=== PATIENT | female | born 1960 | race Caucasian/White ===

== ENCOUNTER → 2022-11-20 | Outpatient (CLI) | payer OTHER | END | disposition home or self-care (01) | LOC: SHCH 14:01 | PROVIDERS: ATTEND Internal Medicine | DX: R00.2 Palpitations (principal); I10 Essential (primary) hypertension; E78.5 Hyperlipidemia, unspecified; E11.9 Type 2 diabetes mellitus without complications | CPT/HCPCS: 93306 ==

== ENCOUNTER → 2023-09-03 | Outpatient (CLI) | payer OTHER ==
[2023-09-03 15:35] LABS: ALBUMIN 3.6 g/dL (3.5-5.0); BILIRUBIN,DIRECT 0.1 mg/dL (0.0-0.3); BILIRUBIN,TOTAL 0.6 mg/dL (0.2-1.0); TOTAL PROTEIN, SERUM 7.3 g/dL (6.0-8.3)
== END | disposition home or self-care (01) ==
LOC: LAB 13:36
PROVIDERS: ATTEND Internal Medicine
DX: E11.65 Type 2 diabetes mellitus with hyperglycemia (principal); I10 Essential (primary) hypertension; I47.10 Supraventricular tachycardia, unspecified
CPT/HCPCS: 36415; 80061; 80076

== ENCOUNTER → 2023-12-15 | Outpatient (CLI) | payer OTHER ==
[2023-12-15 16:27] LABS: CREATININE 1.1 mg/dL (0.5-1.0)
== END | disposition home or self-care (01) ==
LOC: LAB 13:54
PROVIDERS: ATTEND Internal Medicine
DX: R07.9 Chest pain, unspecified (principal)
CPT/HCPCS: 36415; 80048

== ENCOUNTER 2025-08-07 12:44 | Observation (INO) | payer OTHER ==
[~2025-08-07] VITALS: Ht 170.2 cm; Wt 128.3 kg
--- NOTE | 2025-08-07 12:53 | ERN ---
ED Note History of Present Illness Stated Complaint: SOB Chief Complaint: Shortness of Breath Time Seen by MD: 12:47 Dictation: PATIENT IS A 65-YEAR-OLD FEMALE COMING IN TODAY WITH INTERMITTENT CHEST PAIN SUBSTERNAL WITH THE OCCASIONAL PRESSURE AND SHORTNESS A BREATH. SHE STATES IT HAS BEEN GOING ON FOR TWO WEEKS. SHE STATES SHE WAS RECENTLY SEEN BY AND HAS FOLLOW UP WITH THE HIM FOR AN APPOINTMENT. SHE STATES SHE IS NOT ON ANY ASPIRIN AND NITROGLYCERIN CURRENTLY STATES SHE HAS NO CHEST PAIN NOW. NO EPIGASTRIC PAIN NO NAUSEA NO VOMITING Allergies: Coded Allergies: Penicillins (Unverified Allergy, Unknown, 08/07/25) bupropion (Unverified Allergy, Unknown, 08/07/25) codeine (Unverified Allergy, Unknown, 08/07/25) erythromycin base (Unverified Allergy, Unknown, 08/07/25) levofloxacin (Unverified Allergy, Unknown, 08/07/25) levothyroxine (Unverified Allergy, Unknown, 08/07/25) propoxyphene (Unverified Allergy, Unknown, 08/07/25) tetracycline (Unverified Allergy, Unknown, 08/07/25) budesonide (Unverified Adverse Reaction, Unknown, 08/07/25) NAUSEA/ VOMITING dexamethasone (Unverified Adverse Reaction, Unknown, 08/07/25) ANXIETY tirzepatide (Unverified Adverse Reaction, Unknown, 08/07/25) NAUSEA/VOMITING Past Medical History Past Medical History: Depression, High Cholesterol, Hypertension, Other Surgical History: Hysterectomy, Other Surgical History Other: LEFT ROTATOR CUFF RN Note Reviewed/Agreed w/PFSH: Yes Review of System Dictation CONSTITUTIONAL: NEGATIVE EXCEPT FOR HPI HEAD/FACE: NEGATIVE EXCEPT FOR HPI EENT: NEGATIVE EXCEPT FOR HPI RESPIRATORY: NEGATIVE EXCEPT FOR HPI CHEST PAIN/PALPITATIONS INTERMITTENT GASTROINTESTINAL/ABDOMINAL: NEGATIVE EXCEPT FOR HPI GENITOURINARY: NEGATIVE EXCEPT FOR HPI MUSCULOSKELETAL: NEGATIVE EXCEPT FOR HPI INTEGUMENTARY: NEGATIVE EXCEPT FOR HPI NEUROLOGICAL/PSYCH: NEGATIVE EXCEPT FOR HPI HEMATOLOGIC/LYMPHATIC: NEGATIVE EXCEPT FOR HPI ALL SYSTEMS NEGATIVE, EXCEPT NOTED ABOVE. 13 POINT REVIEW OF SYSTEMS ASSESSED AND ALL NEGATIVE EXCEPT FOR ABOVE. Initial Vital Sign VS Vital Signs Date Time Temp Pulse Resp B/P (MAP) Pulse Ox O2 Delivery O2 Flow Rate FiO2 08/07/25 12:45 97.5 71 18 199/83 98 08/07/25 18:02 Room Air* 0 21 Physical Exam Dictation VITAL SIGNS REVIEWED GENERAL APPEARANCE: ALERT, ORIENTED X 3, NO ACUTE DISTRESS, WELL DEVELOPED, NOURISHED. OBESITY HEAD AND FACE: NON-TRAUMATIC. EYES: PERRL, PINK CONJUNCTIVAS, EYELID NO TRAUMA, ANTERIOR CHAMBER WITH ARCUS SENILIS. EARS: PINNAS INTACT AND NO SIGNS OF TRAUMA OR ERYTHEMA EAR CANALS CLEAR AND NO DISCHARGE TM NO ERYTHEMA NOSE: NO DISCHARGE, NO BLEEDING. OROPHARYNX: MOUTH NORMAL, TONGUE PINK, PHARYNX CLEAR,NO ERYTHEMA, TONSILS NO EXUDATES, NO ABSCESSES NOTED, MUCOUS MEMBRANE MOIST NECK: SUPPLE, NON-TENDER, NO THYROMEGALY, NO MASSES, NO JVD, NO BRUITS BREAST:DEFERRED CHEST:NO TENDERNESS, NO CREPITUS, NO PARADOXICAL MOVEMENT, NO RETRACTIONS LUNGS:CLEAR, WELL-VENTILATED, SYMMETRIC, NO RALES, NO WHEEZING, NO RHONCHI, NO STRIDOR, GOOD BREATH SOUNDS BILATERALLY HEART: REGULAR RATE, REGULAR RHYTHM, NO MURMUR, NO GALLOPS VASCULAR: NO PERIPHERAL EDEMA, ABDOMEN: SOFT, POSITIVE BOWEL SOUNDS, NONDISTENDED, NO GUARDING, NONTENDER, NO REBOUND, NO MASSES NO HEPATOMEGALY, NO SPLENOMEGALY, NO WU'S SIGN, NO HERNIAS. RECTAL: DEFERRED GENITAL: DEFERRED NEUROLOGICAL: NORMAL SPEECH, MOTOR FUNCTION INTACT, SENSORY FUNCTION INTACT MUSCULOSKELETAL: NECK NONTENDER, FULL RANGE OF MOTION, BACK NONTENDER, FULL RANGE OF MOTION, EXTREMITIES: NONTENDER, FULL RANGE OF MOTION SKIN: COLOR PINK, DRY, NO TURGOR, NO RASH, NO LACERATIONS, NO ABRASIONS, NO CONTUSIONS. LYMPHATIC: DEFERRED Results (Laboratory/Radiology) Laboratory/Radiology Laboratory Tests Test 08/07/25 13:09 08/07/25 16:55 08/07/25 17:30 08/07/25 17:55 White Blood Count 6.1 K/uL (4.8-10.8) Red Blood Count 4.91 MIL/uL (4.00-5.50) Hemoglobin 12.7 g/dL (12.0-16.0) Hematocrit 40.8 % (36-48) Mean Corpuscular Volume 83.1 fL (79-99) Mean Corpuscular Hemoglobin 25.9 pg (27.0-33.0) L Mean Corpuscular Hemoglobin Concent 31.1 g/dL (32.0-36.0) L Red Cell Distribution Width 14.1 % (11.0-15.5) Platelet Count 342 K/uL (130-400) Mean Platelet Volume 9.9 fL (7.5-10.5) Immature Granulocyte % (Auto) 0.3 % (0-1) Neutrophils (%) (Auto) 71.3 % (40.0-77.0) Lymphocytes (%) (Auto) 20.4 % (21.0-51.0) L Monocytes (%) (Auto) 5.6 % (3.0-13.0) Eosinophils (%) (Auto) 1.3 % (0.0-8.0) Basophils (%) (Auto) 1.1 % (0.0-5.0) Neutrophils # (Auto) 4.3 K/uL (1.8-7.7) Lymphocytes # (Auto) 1.2 K/uL (1.0-4.8) Monocytes # (Auto) 0.3 K/uL (0.1-1.0) Eosinophils # (Auto) 0.08 K/uL (0.00-0.70) Basophils # (Auto) 0.07 K/uL (0.00-0.20) Absolute Immature Granulocyte (auto 0.02 K/uL (0-1) Nucleated Red Blood Cells 0.0 % (0.0-0.19) Sodium Level 136 mmol/L (136-145) Potassium Level 4.2 mmol/L (3.5-5.1) Chloride Level 99 mmol/L (101-111) L Carbon Dioxide Level 31 mmol/L (21-32) Blood Urea Nitrogen 15 mg/dL (7-18) Creatinine 1.1 mg/dL (0.5-1.0) H Glomerular Filtration Rate Calc 56 mL/min (>90) Random Glucose 137 mg/dL (70-105) H Total Calcium 9.3 mg/dL (8.5-10.1) Magnesium Level 2.10 mg/dL (1.80-2.40) Troponin I High Sensitivity < 4 ng/L (4-50) L < 4 ng/L (4-50) L B-Type Natriuretic Peptide 26 pg/mL (0-100) Urine Color YELLOW (YELLOW) Urine Appearance HAZY (CLEAR) Urine pH 5.5 (5.0-8.0) Urine Specific [place] 1.024 (1.001-1.031) Urine Protein NEGATIVE mg/dL (NEGATIVE) Urine Glucose (UA) NEGATIVE mg/dL (NEGATIVE) Urine Ketones NEGATIVE mg/dL (NEGATIVE) Urine Occult Blood NEGATIVE (NEGATIVE) Urine Nitrate NEGATIVE (NEGATIVE) Urine Bilirubin NEGATIVE mg/dL (NEGATIVE) Urine Urobilinogen 0.2 mg/dL (0.2-1.0) Urine Leukocyte Esterase 75 Sean/uL (NEGATIVE) H Urine RBC 0-1 /HPF (0-1) Urine WBC 2-5 /HPF (0-1) H Urine Squamous Epithelial Cells MANY /HPF (0-2) Urine Bacteria FEW /HPF (None Seen) SARS-CoV-2 Antigen (Rapid) PRESUMPTIVE NEGATIVE R Chest, 1 View. CLINICAL HISTORY: CHEST PAIN COMPARISON: None provided. FINDINGS: LUNGS: There is no mass, infiltrate, or acute pulmonary abnormality. PLEURAL SPACES: No evidence of pleural effusion or pneumothorax. MEDIASTINUM: The cardiomediastinal silhouette is within normal limits. BONES: No acute osseous abnormality. IMPRESSION: No acute cardiopulmonary pathology is evident. /[place] Labs Reviewed?: Yes EKG Comment: 1234/EKG SINUS RHYTHM WITH A HEART RATE 88/LEFT ATRIAL ENLARGEMENT/MULTIFOCAL PVCS 1745/2ND EKG SINUS RHYTHM/HEART RATE 79/AXIS NORMAL T-WAVE FLATTENING V4 V5 HIGH SENSITIVITY TROPONIN IS FOUR, HEART SCORE IS THREE ED Course ED Course Orders Procedure Category Date Status Time Covid19 (Sars Antigen LAB 08/07/25 Complete Rapid) 12:49 B-Type Natriuretic LAB 08/07/25 Complete Peptide 12:49 Cbc With Differential LAB 08/07/25 Complete 12:49 Chest 1vw RAD 08/07/25 Resulted 12:49 12 Lead Ekg Tracing- EKG 08/07/25 Complete Technical 12:49 Magnesium LAB 08/07/25 Complete 12:49 Troponin I High LAB 08/07/25 Complete Sensitivity 12:49 Urinalysis Profile LAB 08/07/25 Complete 12:49 Basic Metabolic Panel LAB 08/07/25 Complete 12:49 Aspirin 325mg Tab PHA 08/07/25 Complete (Aspirin 325mg Tab) 13:00 Oxygen By Nc/Pulse Ox CPOE 08/07/25 Transmitted 12:49 Culture Urine CARLOS 08/07/25 In Process 17:11 12 Lead Ekg Tracing- EKG 08/07/25 Logged Technical 17:24 Troponin I High LAB 08/07/25 Complete Sensitivity 17:24 Aspirin 325mg Tab PHA 08/07/25 Complete (Aspirin 325mg Tab) 17:30 Cardiology Consult CONPHYSVC 08/07/25 Transmitted 18:53 Echo 2-D Complete ECHO 08/07/25 Logged 18:53 Vital Signs Every 4 CPOE 08/07/25 Transmitted Hours 18:53 Daily Weights CPOE 08/07/25 Transmitted 18:53 I&O Q Shift CPOE 08/07/25 Transmitted 18:53 Activity: Br W/Brp CPOE 08/07/25 Transmitted With Assist 18:53 Heart Healthy Diet DIET 08/08/25 Transmitted Breakfast Cbc With Differential LAB 08/08/25 Verified 04:00 Basic Metabolic Panel LAB 08/08/25 Verified 04:00 Magnesium LAB 08/08/25 Verified 04:00 Phosphorus LAB 08/08/25 Verified 04:00 Iron Panel With %Sat LAB 08/08/25 Verified 04:00 Prothrombin Time With LAB 08/08/25 Verified INR 04:00 Ionized Calcium LAB 08/08/25 Verified 04:00 Pantoprazole 40mg Tab PHA 08/08/25 In Process (Protonix 40mg Tab 09:00 Enoxaparin Sodium 40 PHA 08/08/25 Logged Mg/0.4 Ml (Lovenox) 09:00 Aspirin 81mg Chew Tab PHA 08/08/25 In Process (Aspirin 81mg Chew 09:00 Acetaminophen 325 Tab PHA 08/07/25 In Process (Tylenol 325mg Tab 19:00 Lactulose 20 Gm/30 Ml PHA 08/07/25 Logged Udcup (Constulose 19:00 Ondansetron 4mg Inj PHA 08/07/25 Logged (Zofran 4mg Inj) 19:00 Clonidine Hcl 0.1 Mg PHA 08/07/25 Logged Tablet (Catapres 0. 19:00 Labetalol 20mg Syg PHA 08/07/25 Logged (Trandate 20mg Syg) 19:00 Apply Scds CPOE 08/07/25 Transmitted 18:53 Turn Patient Q2hrs CPOE 08/07/25 Transmitted 18:53 Elevate Hob At 30 CPOE 08/07/25 Transmitted Degrees 18:53 Admit Orders ADM 08/07/25 Transmitted 18:53 Condition: CPOE 08/07/25 Transmitted 18:53 Telemetry Monitoring CPOE 08/07/25 Transmitted 18:53 Initiate SHEYLA 08/07/25 In Process Hyperglycemia Protoco 18:53 Insulin Regular, PHA 08/07/25 Logged Human 3ml (Humulin R 21:00 Troponin I High LAB 08/08/25 Verified Sensitivity 00:00 Lipid Panel LAB 08/08/25 Verified 04:00 Hemoglobin A1c LAB 08/08/25 Verified 04:00 Thyroid Stimulating LAB 08/08/25 Verified Hormone 04:00 Edm Admit Bridge Order ADM 08/07/25 Verified 19:02 Current Medications Medications (Trade) Dose Ordered Sig/Regan Route PRN Reason Start Time Stop Time Status Last Admin Dose Admin Acetaminophen (TYLenol 325MG TAB) 650 mg Q6H PRN PO FEVER/MILD PAIN LEVEL 1-3 08/07/25 19:00 09/06/25 18:59 Aspirin (Aspirin 325mg Tab) 325 mg ONCE ONCE PO 08/07/25 13:00 08/07/25 13:01 DC 08/07/25 17:38 Aspirin (Aspirin 325mg Tab) 325 mg ONCE ONCE PO 08/07/25 17:30 08/07/25 17:31 DC Aspirin (Aspirin 81mg Chew Tab) 81 mg DAILY PO 08/08/25 09:00 09/07/25 08:59 Clonidine HCl (CATApres 0.1 mg TAB) 0.1 mg Q6H PRN PO IF SBP GREATER THAN 160 08/07/25 19:00 09/06/25 18:59 Enoxaparin Sodium (Lovenox) 40 mg DAILY SQ 08/08/25 09:00 09/07/25 08:59 UNV Insulin Human Regular (humuLIN R 100 UNIT/ML 3ML) INSULIN SLIDING SCAL... ACHS SQ 08/07/25 21:00 09/06/25 20:59 UNV Labetalol HCl (TRANdate 20MG SYG) 10 mg Q2H PRN IV SBP GREATER THAN 180 08/07/25 19:00 09/06/25 18:59 Lactulose (Constulose 20gm/ 30ml Udcup) 20 gm Q6H PRN PO CONSTIPATION 08/07/25 19:00 09/06/25 18:59 Ondansetron HCl (zoFRAN 4MG INJ) 4 mg Q6H PRN IVP NAUSEA/VOMITING 08/07/25 19:00 09/06/25 18:59 Pantoprazole Sodium (PROTonix 40MG TAB) 40 mg DAILY PO 08/08/25 09:00 09/07/25 08:59 Vital Signs Date Time Temp Pulse Resp B/P (MAP) Pulse Ox O2 Delivery O2 Flow Rate FiO2 08/07/25 18:02 96 17 186/93 98 Room Air* 0 21 08/07/25 12:45 97.5 71 18 199/83 98 1725/PATIENT NOT HAVE ANY CHEST PAIN AT THIS TIME SHE DESCRIBES IT PALPITATIONS. EKG WAS SINUS RHYTHM WITH PVCS. HIGH SENSITIVITY TROPONIN LESS THAN FOUR. WE WILL FOLLOW TO REPEAT CHEST PAIN [id number] 1840/PATIENT IS HAVING NO PRESSURE AT THIS TIME HOWEVER SHE STATES SHE IS STILL FEELING PALPITATIONS AND DOES NOT FEEL SAFE GOING HOME.1857/ 1857/spoke with [facility] hospitalist reviewed EKG labs chest x-ray. He is aware the patient has been seen by Dr. Pena in the past. HEART Score Response (Comments) Value EKG: Repolarization changes 1 Age: 45-65yrs (+1) 1 Risk Factors: 1-2 risk factors (+1) 1 Initial Troponin: Normal limit (0) 0 Total 3 Medical Decision Making MDM MDM: DIFFERENTIAL DIAGNOSIS: ACS/AMI/ELECTROLYTE IMBALANCE/DEHYDRATION/ANXIETY/PNEUMONIA/BRONCHITIS/FLUID OVERLOAD RATIONALE: TESTS CONSIDERED AND ORDERED SECONDARY TO SHARED DECISION MAKING INCLUDE: LABS, ECG AND RADIOLOGY PREVIOUS OUTSIDE RECORDS REVIEWED: OLD ER VISITS. RISK OF COMPLICATION AND/OR MORBIDITY OR MORTALITY OF PATIENT MANAGEMENT: NONE MEDICATIONS-PER MEDICATION RECONCILIATION NEED FOR HOSPITALIZATION: PATIENT DOES MEET CRITERIA FOR HOSPITALIZATION. CARDIAC CONSULTATION AND MONITORING. NEED FOR EMERGENCY MAJOR/MINOR SURGERY: NO THERE ARE NO SOCIAL CONCERNS WITH THIS PATIENT. PRESCRIPTION DRUG MANAGEMENT PRESCRIPTIONS WILL INCLUDE SYMPTOMATIC CARE PATIENT'S PRIOR EXTERNAL MEDICAL RECORDS FROM OTHER ER VISITS WERE REVIEWED BY ME INDICATED. PRIOR TESTING AND RESULTS FROM PREVIOUS VISITS WERE REVIEWED. PRIOR TESTS WERE TAKEN INTO ACCOUNT WITH MEDICAL DECISION MAKING AND RESOURCE UTILIZATION, INDEPENDENT HISTORIAN/HISTORIANS WERE USED TO OBTAIN COMPLETE MEDI VI HISTORY. I INDEPENDENTLY INTERPRETED THE TEST THAT WERE PERFORMED, RESULTS WERE REVIEWED BY ME AND CONSIDERED FINDINGS ON RADIOLOGY IF ORDERED. MEDICAL MANAGEMENT AND EXAMINATION INTERPRETATION DISCUSSIONS WERE HAD BY ME WITH OTHER QUALIFIED HEALTHCARE PROFESSIONALS INDICATED FOR THE PATIENT'S CARE. DX & DISP Disposition: Inpatient Decision to Admit Time: 18:43 Departure Impression: Primary Impression: Atypical chest pain Additional Impressions: Palpitations, Stage 3a chronic kidney disease, Hyperglycemia Condition: Stable Referrals: TAY MONTE MD (PCP) Time of Disposition: 18:43 I have reviewed the case, and I agree with, Diagnosis and Plan LUCINA MIMS MANAGER TRAINING AND DEVELOPMENT Aug 07, 2025 12:53
[2025-08-07 13:16] LABS: IMMATURE GRANULOCYTE ABSOLUTE 0.02 K/uL (0-1); NUCLEATED RED BLOOD CELLS 0.0 % (0.0-0.19); PLATELET COUNT (AUTO) 342 K/uL (130-400); RED BLOOD CELL COUNT(AUTO) 4.91 MIL/uL (4.00-5.50); RED CELL DISTRIBUTION WIDTH 14.1 % (11.0-15.5); WHITE BLOOD COUNT (AUTO) 6.1 K/uL (4.8-10.8)
[2025-08-07 13:25] LABS: CREATININE 1.1 mg/dL (0.5-1.0); GLOMERULAR FILTR. RATE CALC 56.0 mL/min (>90); GLUCOSE,RANDOM 137.0 mg/dL (70-105); SODIUM SERUM 136.0 mmol/L (136-145); UREA NITROGEN, BLOOD 15.0 mg/dL (7-18)
--- NOTE | 2025-08-07 13:34 | HMCIMG ---
EXAM: CR Chest, 1 View. CLINICAL HISTORY: CHEST PAIN COMPARISON: None provided. FINDINGS: LUNGS: There is no mass, infiltrate, or acute pulmonary abnormality. PLEURAL SPACES: No evidence of pleural effusion or pneumothorax. MEDIASTINUM: The cardiomediastinal silhouette is within normal limits. BONES: No acute osseous abnormality. IMPRESSION: No acute cardiopulmonary pathology is evident. /[place]
--- NOTE | 2025-08-07 14:35 | EKG ---
[facility] Test Date: 2025-08-07 Test Time: 12:34:08 Pat Name: EMERSON WILLAMS Department: [facility] Room: ED Gender: F Melter Clerk: [id number] : 1960 Requested By: LUCINA MIMS Order Number: [id number] Reading MD: Priyanka Pena Measurements Intervals [place] Rate: 88 P: 70 OH: 152 QRS: 24 QRSD: 87 T: 7 QT: 359 QTc: 439 Interpretive Statements Sinus rhythm Multiple ventricular premature complexes Probable left atrial enlargement No previous ECG available for comparison Electronically Signed On 08-07-2025 19:40:34 CYBER OPERATOR by Priyanka Pena Please click the below link to view image of tracing.
[2025-08-07 17:08] LABS: GLUCOSE, URINE (UA) NEGATIVE (NEGATIVE); LEUKOCYTE ESTERASE ,URINE 75 Leu/uL (NEGATIVE); NITRATE,URINE NEGATIVE (NEGATIVE); OCCULT BLOOD,URINE NEGATIVE (NEGATIVE)
[2025-08-07 17:09] LABS: ADD UA MICROSCOPIC YES; APPEARANCE,URINE HAZY (CLEAR)
[2025-08-07 17:14] LABS: SQUAMOUS EPITHELIAL CELL,UR MANY /HPF (0-2)
[2025-08-07] MEDS: ASPIRIN 325MG TAB PO ONE ×2 (17:38)
[2025-08-07] MEDS ORDERED: LACTULOSE 20 GM/30 ML UDCUP PO PRN (19:00)
--- NOTE | 2025-08-07 19:02 | HP ---
[facility] HISTORY & PHYSICAL Date Patient Seen: Aug 07, 2025 Time of Visit: 18:59 Supervising Physician: [Dr. Derek Pandya] Primary Care Physician: [Dr. David Ross ] Outpatient Specialists: [Dr. Pena-cardiology ] Inpatient Consults: [Dr. Pena-cardiology ] PROBLEM LIST: Atypical chest pain-POA Palpitations-POA Hypertensive urgency-POA HLD DM Paroxysmal Afib and SVT CKD GERD Anxiety disorder PLAN: -Admit to medsur telemetry -ACS risk stratifications: TSH, lipid panel and HgA1c -Obtain echo in am -Recheck trops -PRN NTG and IV Morphine for chest pain management -Dr. Carpenter was notified by ED practitioner and will need to consult Dr. Pena in am -Maintain hemodynamic stability to keep MAP >65; PRN IV Labetalol for SBP >160 HPI: [Patient is a morbidly obese 65-year-old female with PMH significant for paroxysmal afib adn SVT, HTN, HLD, CKD, GERD and anxiety who has presented tot he ED concerning persistent palpitations and right-sided chest tightness with accompanying dizziness and near-syncope with no known provocation. She reports strong family HX of arrythmias and with a long-standing recurrent palpitations, she was just afraid of further complications. She claims that her symptoms have been occurring more frequently now. She tried contacting Dr. Pena's clinic m ultiple times but she claims she could not get connected so she decided to come to the hospital instead for evaluation. Her chest tightness occurs spontaneously regardless of her activities or position. She denies any migration or radiation. Her main focus of concern was the heart pause claiming that she would feel the skipped beats and then palpitations in an alternating fashion without any triggers. Labworks were unremarkable, EKG was NSR, troponin x 2 were WNL. Physical assessment was unrevealing except for appreciable skipped beats on auscultation. Otherwise, patient is currently stable. Goals of care were discussed with the patient verbalizing understanding and agreement.] PAST MEDICAL HX: see above PAST SURGICAL HX: noncontributory SOCIAL HISTORY: No tobacco, ETOH, or illicit drug use Coded Allergies: Penicillins (Unverified Allergy, Unknown, 08/07/25) bupropion (Unverified Allergy, Unknown, 08/07/25) codeine (Unverified Allergy, Unknown, 08/07/25) erythromycin base (Unverified Allergy, Unknown, 08/07/25) levofloxacin (Unverified Allergy, Unknown, 08/07/25) levothyroxine (Unverified Allergy, Unknown, 08/07/25) propoxyphene (Unverified Allergy, Unknown, 08/07/25) tetracycline (Unverified Allergy, Unknown, 08/07/25) budesonide (Unverified Adverse Reaction, Unknown, 08/07/25) NAUSEA/ VOMITING dexamethasone (Unverified Adverse Reaction, Unknown, 08/07/25) ANXIETY tirzepatide (Unverified Adverse Reaction, Unknown, 08/07/25) NAUSEA/VOMITING REVIEW OF SYSTEMS: 12 point ROS reviewed with patient. Pertinent positives mentioned above. Otherwise negative. PHYSICAL EXAM: GENERAL: alert, awake oriented x 3, morbidly obese HEENT: EOMI, Sclera non icteric, moist mucosa NECK: Supple, no JVD, trachea midline LUNGS: Clear breath sounds bilaterally. No wheezes HEART: Regular rate and rhythm. Normal S1 and S2, without murmurs, appreciable skipped beats noted on auscultation ABD: Abdomen soft, nontender. Bowel sounds present EXT: No clubbing cyanosis or edema NEURO: Alert and oriented to person, follows commands Vital Signs (last 8hr) Date Time Temp Pulse Resp B/P (MAP) Pulse Ox O2 Delivery O2 Flow Rate FiO2 08/07/25 18:02 96 17 186/93 98 Room Air* 0 21 08/07/25 12:45 97.5 71 18 199/83 98 LABS: Hematology Labs: Test 08/07/25 13:09 Range/Units White Blood Count 6.1 4.8-10.8 K/uL Red Blood Count 4.91 4.00-5.50 MIL/uL Hemoglobin 12.7 12.0-16.0 g/dL Hematocrit 40.8 36-48 % Mean Corpuscular Volume 83.1 79-99 fL Mean Corpuscular Hemoglobin 25.9 L 27.0-33.0 pg Mean Corpuscular Hemoglobin Concent 31.1 L 32.0-36.0 g/dL Red Cell Distribution Width 14.1 11.0-15.5 % Platelet Count 342 130-400 K/uL Mean Platelet Volume 9.9 7.5-10.5 fL Immature Granulocyte % (Auto) 0.3 0-1 % Neutrophils (%) (Auto) 71.3 40.0-77.0 % Lymphocytes (%) (Auto) 20.4 L 21.0-51.0 % Monocytes (%) (Auto) 5.6 3.0-13.0 % Eosinophils (%) (Auto) 1.3 0.0-8.0 % Basophils (%) (Auto) 1.1 0.0-5.0 % Neutrophils # (Auto) 4.3 1.8-7.7 K/uL Lymphocytes # (Auto) 1.2 1.0-4.8 K/uL Monocytes # (Auto) 0.3 0.1-1.0 K/uL Eosinophils # (Auto) 0.08 0.00-0.70 K/uL Basophils # (Auto) 0.07 0.00-0.20 K/uL Absolute Immature Granulocyte (auto 0.02 0-1 K/uL Nucleated Red Blood Cells 0.0 0.0-0.19 % Chemistry Labs: Test 08/07/25 17:55 08/07/25 13:09 Range/Units Troponin I High Sensitivity < 4 L 4-50 ng/L Sodium Level 136 136-145 mmol/L Potassium Level 4.2 3.5-5.1 mmol/L Chloride Level 99 L 101-111 mmol/L Carbon Dioxide Level 31 21-32 mmol/L Blood Urea Nitrogen 15 7-18 mg/dL Creatinine 1.1 H 0.5-1.0 mg/dL Glomerular Filtration Rate Calc 56 >90 mL/min Random Glucose 137 H 70-105 mg/dL Total Calcium 9.3 8.5-10.1 mg/dL Magnesium Level 2.10 1.80-2.40 mg/dL B-Type Natriuretic Peptide 26 0-100 pg/mL DIAGNOSTICS / RADIOLOGY RESULTS: [ ] PLAN NEURO: Minimize central acting medications as possible. Maintain fall precautions, adequate lighting during the day PULMONARY: Supplemental 02 as needed. Maintain aspiration precautions at all times CARDIOVASCULAR: Follow hemodynamics. Vital signs per facility protocol GI & NUTRITION: Continue with nutritional support. Continue stool softeners and laxatives as needed. KIDNEYS & ELECTROLYTES: Strict monitoring of intake, output and overall fluid balance. Avoid nephrotoxic medications to the extent possible. Medications to be dosed according to renal function. Monitor electrolytes and replace as needed ENDOCRINE: Maintain blood glucose between 100-180 at all times. Hypoglycemia protocol in place INFECTIOUS DISEASE: Trend temperature, WBC and procalcitonin level Follow cultures, deescalate antibiotics as soon as possible. Panculture if new onset fever ONCOLOGY/HEMATOLOGY/COAGULATION: Monitor for s/s of bleeding Monitor hemoglobin, coagulation studies as needed SKIN: Pressure ulcer prevention per facility protocol Specialty mattress ORTHO/REHAB: Continue PT/OT Prophylaxis: Continue GI and DVT prophylaxis Code Status: Full Resuscitation Disposition: JAYNA QUACH AGACNP Aug 07, 2025 19:02
--- NOTE | 2025-08-07 21:11 | NUR ---
ROSIE OUTREACH WORKER AT BEDSIDE AT THIS TIME
[2025-08-08] MEDS ORDERED: OMEP20TA2 PO (00:47)
[2025-08-08] MEDS ORDERED: DULO20CA18 PO (00:47)
[2025-08-08] MEDS ORDERED: ATOR40TA71 PO (00:47)
[2025-08-08] MEDS ORDERED: LISI40TA15 PO (00:47)
[2025-08-08] MEDS ORDERED: IOHEXOL-350 50ML VIAL IV ONE (02:47)
--- NOTE | 2025-08-08 04:16 | HMCIMG ---
EXAM: CTA examination of the chest CLINICAL HISTORY: Rule out pulmonary embolism. Elevated D-dimer. Shortness of breath. TECHNIQUE: Postcontrast thin collimated axial CTA images of the chest were obtained with sagittal and coronal reformatted images also submitted. CT scan is done according to ALARA (As Low as Reasonably Achievable). COMPARISON: None provided. FINDINGS: Mild subsegmental atelectasis in the bilateral lung bases. 0.6 cm subpleural nodule in the left lingula. Mild biapical pleural scarring. No focal consolidation, effusion, pneumothorax, or mass. No pericardial effusion. The cardiac size is within normal limits. Mild calcific atherosclerotic disease in the thoracic aorta. No thoracic aortic aneurysm. The pulmonary artery is normal in caliber without a filling defect or pulmonary thromboembolism. No mediastinal, axillary, or supraclavicular lymphadenopathy. No focal third abnormality is evident. Mild fatty liver. 2.2 cm cystic structure within the spleen. No acute bony abnormality is evident. Mild scoliosis. Degenerative osseous changes. IMPRESSION: No acute pulmonary thromboembolism is evident. No acute cardiopulmonary process. 0.6 cm subpleural nodule in the left lingula. Recommend a follow-up CT chest at 6 months. /[place]
[2025-08-08 06:09] LABS: IMMATURE GRANULOCYTE ABSOLUTE 0.02 K/uL (0-1); NUCLEATED RED BLOOD CELLS 0.0 % (0.0-0.19); PLATELET COUNT (AUTO) 321 K/uL (130-400); RED BLOOD CELL COUNT(AUTO) 4.63 MIL/uL (4.00-5.50); RED CELL DISTRIBUTION WIDTH 14.3 % (11.0-15.5); WHITE BLOOD COUNT (AUTO) 7.3 K/uL (4.8-10.8)
[2025-08-08 06:23] LABS: INR 0.95 (0.85-1.15)
[2025-08-08 06:24] LABS: % IRON SATURATION 8.7 % (22-44); IRON, SERUM 33.0 mcg/dL (50-170)
[2025-08-08 06:35] LABS: CREATININE 1.1 mg/dL (0.5-1.0); GLOMERULAR FILTR. RATE CALC 56.0 mL/min (>90); GLUCOSE,RANDOM 117.0 mg/dL (70-105); LDL DIRECT 71.0 mg/dL (0-99); PHOSPHORUS 3.0 mg/dL (2.5-4.9); SODIUM SERUM 135.0 mmol/L (136-145); UREA NITROGEN, BLOOD 18.0 mg/dL (7-18)
--- NOTE | 2025-08-08 08:08 | PN ---
[facility] PROGRESS NOTE Date Patient Seen: Aug 08, 2025 Time of Visit: 08:08 Supervising Physician: Rivera Howard MD Primary Care Physician: [Dr. David Ross ] Outpatient Specialists: [Dr. Pena-cardiology ] Inpatient Consults: [Dr. Pena-cardiology ] PROBLEM LIST: Atypical chest pain-POA Palpitations-POA Hypertensive urgency-POA HLD DM Paroxysmal Afib and SVT LIZ on CKD 0.6 cm subpleural nodule in the left lingula (CT chest follow up in 6 months) GERD Anxiety disorder INTERVAL HISTORY: Patient is awake alert and oriented x3. Currently hemodynamically stable. She has been afebrile with a T-max of 98.4 saturating 97% on room air in no apparent respiratory distress. On chemistries sodium 135 chloride 99 creatinine 1.1 GFR of 56 glucose of 117 mg/dL magnesium of 2.10 iron 33 TSH of 6.31. She is awaiting cardiology consult for evaluation and recommendations. Currently SR on the potline monitor at the bedside with occasional PVC's. As per pt she know her TSH has been slightly elevated but has not been started on levothyroxine due to allergy to medication. PLAN: -Admit to med-surg telemetry -ACS risk stratifications: TSH, lipid panel and HgA1c -Obtain echo in am-pending result -Recheck trops -PRN NTG and IV Morphine for chest pain management -Dr. Pena has been consulted. -Maintain hemodynamic stability to keep MAP >65; PRN IV Labetalol for SBP >160 -plan for DC in the next 24 hours [address] chest in 6 Months for 0.6 cm subpleural nodule in the left lingula REVIEW OF SYSTEMS: 12 point ROS reviewed with patient. Pertinent positives mentioned above. Otherwise negative. PHYSICAL EXAM: GENERAL: alert, awake oriented x 3, morbidly obese HEENT: EOMI, Sclera non icteric, moist mucosa NECK: Supple, no JVD, trachea midline LUNGS: Clear breath sounds bilaterally. No wheezes HEART: Regular rate and rhythm. Normal S1 and S2, without murmurs, appreciable skipped beats noted on auscultation ABD: Abdomen soft, nontender. Bowel sounds present EXT: No clubbing cyanosis or edema NEURO: Alert and oriented to person, follows commands Vital Signs (last 8hr) Date Time Temp Pulse Resp B/P (MAP) Pulse Ox O2 Delivery O2 Flow Rate FiO2 08/08/25 07:25 97.3 72 16 162/68 97 Room Air* 0 21 08/08/25 06:10 98.1 74 16 155/83 98 Room Air* 0 21 08/08/25 04:10 80 14 142/82 98 Room Air* 0 21 LABS: Hematology Labs: Test 08/08/25 05:56 Range/Units White Blood Count 7.3 4.8-10.8 K/uL Red Blood Count 4.63 4.00-5.50 MIL/uL Hemoglobin 12.0 12.0-16.0 g/dL Hematocrit 38.1 36-48 % Mean Corpuscular Volume 82.3 79-99 fL Mean Corpuscular Hemoglobin 25.9 L 27.0-33.0 pg Mean Corpuscular Hemoglobin Concent 31.5 L 32.0-36.0 g/dL Red Cell Distribution Width 14.3 11.0-15.5 % Platelet Count 321 130-400 K/uL Mean Platelet Volume 9.9 7.5-10.5 fL Immature Granulocyte % (Auto) 0.3 0-1 % Neutrophils (%) (Auto) 62.2 40.0-77.0 % Lymphocytes (%) (Auto) 29.0 21.0-51.0 % Monocytes (%) (Auto) 6.6 3.0-13.0 % Eosinophils (%) (Auto) 1.1 0.0-8.0 % Basophils (%) (Auto) 0.8 0.0-5.0 % Neutrophils # (Auto) 4.5 1.8-7.7 K/uL Lymphocytes # (Auto) 2.1 1.0-4.8 K/uL Monocytes # (Auto) 0.5 0.1-1.0 K/uL Eosinophils # (Auto) 0.08 0.00-0.70 K/uL Basophils # (Auto) 0.06 0.00-0.20 K/uL Absolute Immature Granulocyte (auto 0.02 0-1 K/uL Nucleated Red Blood Cells 0.0 0.0-0.19 % Chemistry Labs: Test 08/08/25 05:56 08/08/25 00:18 08/07/25 20:16 08/07/25 13:09 Range/Units Sodium Level 135 L 136-145 mmol/L Potassium Level 4.1 3.5-5.1 mmol/L Chloride Level 99 L 101-111 mmol/L Carbon Dioxide Level 29 21-32 mmol/L Blood Urea Nitrogen 18 7-18 mg/dL Creatinine 1.1 H 0.5-1.0 mg/dL Glomerular Filtration Rate Calc 56 >90 mL/min Random Glucose 117 H 70-105 mg/dL Total Calcium 9.2 8.5-10.1 mg/dL Ionized Calcium 1.19 1.15-1.33 MMOL/L Phosphorus Level 3.0 2.5-4.9 mg/dL Magnesium Level 2.10 1.80-2.40 mg/dL Iron Level 33 L 50-170 mcg/dL Total Iron Binding Capacity 376 250-450 mcg/dL Percent Iron Saturation 8.7 L 22-44 % Triglycerides Level 64 30-200 mg/dL Cholesterol Level 141 <200 mg/dL LDL Cholesterol 71 0-99 mg/dL HDL Cholesterol 51 35-85 mg/dL Thyroid Stimulating Hormone (TSH) 6.31 H 0.36-3.74 uIU/mL Hemoglobin A1c 6.5 H 4.0-6.0 % Estimated Average Glucose (eAG) 140 H 70-126 mg/dL Troponin I High Sensitivity < 4 L 4-50 ng/L Whole Blood Glucose 135 H 70-110 MG/DL B-Type Natriuretic Peptide 26 0-100 pg/mL Coagulation Labs: Test 08/08/25 05:56 08/08/25 00:18 Range/Units Prothrombin Time 10.1 9.6-11.6 SEC Prothromb Time International Ratio 0.95 0.85-1.15 D-Dimer Quantitative (PE/DVT) 556 *H 0-500 ng/mL DIAGNOSTICS / RADIOLOGY RESULTS: [place] [address] [address] IMAGING REPORT Signed PATIENT: EMERSON WILLAMS MR#: [id number] : 1960 SEX: F AGE: 65 LOCATION: [facility] ORDER 9 STATUS: ADM IN REPORT#: [id number] SERVICE 8 REASON: RULE OUT PE, ELEVATED D-DIMER, SOB ORDERING PHYSICIAN: JAYNA VELEZ PROCEDURE: CHES PE - CT CHEST PE PROTOCOL WWO CONT EXAM: CTA examination of the chest CLINICAL HISTORY: Rule out pulmonary embolism. Elevated D-dimer. Shortness of breath. TECHNIQUE: Postcontrast thin collimated axial CTA images of the chest were obtained with sagittal and coronal reformatted images also submitted. CT scan is done according to ALARA (As Low as Reasonably Achievable). COMPARISON: None provided. FINDINGS: Mild subsegmental atelectasis in the bilateral lung bases. 0.6 cm subpleural nodule in the left lingula. Mild biapical pleural scarring. No focal consolidation, effusion, pneumothorax, or mass. No pericardial effusion. The cardiac size is within normal limits. Mild calcific atherosclerotic disease in the thoracic aorta. No thoracic aortic aneurysm. The pulmonary artery is normal in caliber without a filling defect or pulmonary thromboembolism. No mediastinal, axillary, or supraclavicular lymphadenopathy. No focal third abnormality is evident. Mild fatty liver. 2.2 cm cystic structure within the spleen. No acute bony abnormality is evident. Mild scoliosis. Degenerative osseous changes. IMPRESSION: No acute pulmonary thromboembolism is evident. No acute cardiopulmonary process. 0.6 cm subpleural nodule in the left lingula. Recommend a follow-up CT chest at 6 months. /[place] DICTATED BY: ELIEZER SANTANA Jr., MD DATE: 08/08/25515 ELECTRONICALLY SIGNED BY: ELIEZER SANTANA Jr., MD DATE: 08/08/25515 PLAN NEURO: Minimize central acting medications as possible. Maintain fall precautions, adequate lighting during the day PULMONARY: Supplemental 02 as needed. Maintain aspiration precautions at all times CARDIOVASCULAR: Follow hemodynamics. Vital signs per facility protocol GI & NUTRITION: Continue with nutritional support. Continue stool softeners and laxatives as needed. KIDNEYS & ELECTROLYTES: Strict monitoring of intake, output and overall fluid balance. Avoid nephrotoxic medications to the extent possible. Medications to be dosed according to renal function. Monitor electrolytes and replace as needed ENDOCRINE: Maintain blood glucose between 100-180 at all times. Hypoglycemia protocol in place INFECTIOUS DISEASE: Trend temperature, WBC and procalcitonin level Follow cultures, deescalate antibiotics as soon as possible. Panculture if new onset fever ONCOLOGY/HEMATOLOGY/COAGULATION: Monitor for s/s of bleeding Monitor hemoglobin, coagulation studies as needed SKIN: Pressure ulcer prevention per facility protocol Specialty mattress ORTHO/REHAB: Continue PT/OT Prophylaxis: Continue GI and DVT prophylaxis Code Status: Full Resuscitation Disposition: TBD ATTESTATION BY PHYSICIAN I reviewed the documentation, medical decision making, and treatment plan as noted by the mid-level provider above. I agree with the findings and plan of care. Rivera Howard MD, [facility] Aug 08, 2025 08:08
[2025-08-08] MEDS: FAMOTIDINE 20MG TAB PO SCH (09:00)
[2025-08-08] MEDS ORDERED: NAPROXEN 250 MG TAB PO SCH (09:00)
[2025-08-08] MEDS: ENOXAPARIN SODIUM 40 MG/0.4 ML SYRINGE SQ SCH (09:15)
[2025-08-08] MEDS: ASPIRIN 81MG CHEW TAB PO SCH (09:15)
--- NOTE | 2025-08-08 11:48 | NUR ---
DCP:HOME Pt currently lives at home with her Bernardo Felipe [phone]. Pt states that she only uses a CPAP. Pt does not have any home health or provider services. Pt states that she does require some assistance with ADLs and is the one to assist her when needed. At DC pt will want to go home and family can assist with transportation.
--- NOTE | 2025-08-08 12:31 | EKG ---
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
--- NOTE | 2025-08-08 13:31 | HMCSR ---
APPROVED REPORT EXAM: Two-dimensional and M-mode echocardiogram with Doppler and color Doppler. INDICATION ICD: Chest pain R07.9, Palpitations 2D Dimensions RVDd 3.8 cm LVEF(%) 59.4 (>50%) LVED Vol(simp.) 75.0 mL IVSd 1.2 (0.7-1.1cm) FS(%) 31 % LVES Vol(simp.) 25.0 mL LVDd 4.5 (3.8-5.6cm) LA (2D) 3.8 (1.6-4.0cm) LVEF(%, simp.) 67 % PWd 1.0 (0.7-1.1cm) Ao Root(2D) 2.8 (2.0-3.7cm) LA ESV INDEX (BP) 22.25 mL/m2 IVSs 1.4 cm LVOT diam 2.2 (1.8-2.4cm) LVDs 3.1 (2.5-4.0cm) IVC diam 1.9 cm PWs 1.3 cm Deformation Strain Apical 4 -19.1 % Apical 2 -17.7 % Apical 3 -15.8 % Global Strain -17.5 % M-Mode Dimensions EPSS 0.8 cm LA (MM) 3.6 (1.6-4.0cm) Ao Root(MM) 2.7 (2.0-3.7cm) Aortic Valve AoV Vmax 1.4 m/s Ao Peak GR 7.3 mmHg LVOT Vmax 1.2 m/s AoV VTI 0.3 m Ao Mean GR 4.1 mmHg LVOT VTI 0.27 m SOFÍA (VMAX) 3.33 cm2 SOFÍA (VTI) 3.8 cm2 Mitral Valve MV E Vmax 58.0 cm/s DECEL Time 187 ms MV A Vmax 97.2 cm/s P 1/2 T 34 ms E/A ratio 0.6 MVA (PHT) 6.4 cm2 TDI E/E' Medial 12.1 E/E' Lateral 14.0 Medial E' Peak V 4.79 cm/s Lateral E' Peak V 4.14 cm/s Pulmonary Valve PV Vmax 0.9 m/s PV Mean GR 2.2 mmHg PV Peak GR 3.0 mmHg Tricuspid Valve TR Vmax 1.3 m/s RAP (EST) 3 mmHg RVSP 9.6 mmHg TR Peak GR 6.6 mmHg Left Ventricle The left ventricle is normal size. GLS -18.0% There is normal left ventricular wall thickness. The LVEF is > 65%. The left ventricular diastolic function is normal. Right Ventricle The right ventricle is normal size. The right ventricular systolic function is normal. Atria The left atrium size is normal. The right atrium size is normal. Aortic Valve The aortic valve is normal in structure. No aortic regurgitation is present. There is no aortic valvular stenosis. Mitral Valve The mitral valve is normal in structure. There is no mitral valve regurgitation noted. There is no mitral valve stenosis. Tricuspid Valve The tricuspid valve is normal in structure. There is no tricuspid valve regurgitation noted. Pulmonic Valve The pulmonary valve is normal in structure. There is no pulmonic valvular regurgitation. Great Vessels The aortic root is normal in size. The IVC is normal in size and collapses >50% with inspiration. Pericardium There is no pericardial effusion. Other Information Quality : Adequate Rhythm : NSR Conclusion The LVEF is > 65%. The left ventricular diastolic function is normal.
--- NOTE | 2025-08-08 13:38 | CONS ---
[facility] CARDIOLOGY CONSULTATION NOTE Date Patient Seen: Aug 08, 2025 Time of Visit: 13:24 Requesting Physician: Dr Martines (ED) Reason for Consultation: palpitations History of Present Illness: Patient is 65-year-old female with past medical history of PVCs, paroxysmal SVT, KAMERON on CPAP, hypothyroidism, type 2 diabetes mellitus, hypertension, dyslipidemia, normal coronary arteries by coronary CT angiography in 2023. Patient was seen in my office in February of 2025 for routine follow up, overall was feeling well. She has a prior24 hour Holter in 2018 showing rare PACs and PVCs. 72 hour MCT in September 2022 showed two short events of SVT, lasting six weeks duration in the evening, minimum heart rate 46 beats per minute. PVC burden less than 0.01%. Beta-blockers were previously offered to the patient for symptoms, however declined as she reported her symptoms were quite minimal. Prior transthoracic echocardiogram from October of 2022 showed normal LVEF of 56%, trace TR the prominent epicardial fat pad. Patient presented with complaints of palpitations worsening in frequency over the prior 1-2 weeks. Troponins have been negative. EKG shows isolated PVCs. Heart rate and blood pressure has been well controlled. Her TSH is elevated at 6.3. Mag and potassium wnl. Past Medical History: PVCs, paroxysmal SVT, KAMERON on CPAP, hypothyroidism, type 2 diabetes mellitus, hypertension, dyslipidemia, normal coronary arteries by coronary CT angiography in 2023 Past Surgical History: rotator cuff left arm hernia repair hysterectomy bladder lift left arm tumor removal Family History: father heart disease; mother hypertension, heart disease; sibling heart disease, sister with amyloid affecting heart Social History: nonsmoker, no EtOH Home Meds: Lisinopril 40 daily Duloxetine 20 mg daily Atorvastatin calcium 40 mg daily Vitamin-D 1.25 mg once a week Current Meds: Current Medications Medications Dose Ordered Sig/Regan Start Time Stop Time Status Last Admin Pantoprazole Sodium 40 mg DAILY 08/08/25 09:00 09/07/25 08:59 Enoxaparin Sodium 40 mg DAILY 08/08/25 09:00 09/07/25 08:59 08/08/25 09:15 Aspirin 81 mg DAILY 08/08/25 09:00 09/07/25 08:59 08/08/25 09:15 Acetaminophen 650 mg Q6H PRN 08/07/25 19:00 09/06/25 18:59 Lactulose 20 gm Q6H PRN 08/07/25 19:00 09/06/25 18:59 Ondansetron HCl 4 mg Q6H PRN 08/07/25 19:00 09/06/25 18:59 Clonidine HCl 0.1 mg Q6H PRN 08/07/25 19:00 09/06/25 18:59 Labetalol HCl 10 mg Q2H PRN 08/07/25 19:00 09/06/25 18:59 Insulin Human Regular INSULIN SLIDING SCAL... ACHS 08/07/25 21:00 09/06/25 20:59 Atorvastatin Calcium 40 mg HS 08/08/25 21:00 09/07/25 20:59 Lisinopril 20 mg DAILYDINNER 08/08/25 17:00 09/07/25 16:59 Home Med (Duloxetine HCl 20MG CAP) DAILY 08/08/25 09:00 09/07/25 08:59 Famotidine 20 mg BID 08/08/25 09:00 09/07/25 08:59 Review of Systems: CONST: [No fever, fatigue, or weight changes.] ENT: [No congestion, ear pain, or sore throat.] C/V: [+ chest pain, +palpitations; no edema.] RESP: [No cough, congestion, wheezing or shortness of breath.] GI: [No abdominal pain, nausea, vomiting, constipation, or diarrhea.] : [No incontinence or dysuria.] NEURO: [No headache, focal numbness or weakness, dizziness, or seizures.] PSYCH: [No depression or anxiety.] HEME: [No abnormal bruising or bleeding.] LYMPH: [No swollen glands.] Physical Examination: GENERAL: [No acute distress.] ENT: [Hearing grossly intact, normal oropharynx.] NECK: [ Normal carotid upstrokes without bruits.] LUNGS: [Clear breath sounds bilaterally. On room air. No wheezes, or rhonchi.] HEART: [Normal rate and rhythm. Normal S1 and S2 without murmurs, gallop or rub.] VASC: [Peripheral pulses +2 bilaterally.] ABD: [Bowel sounds normal, soft, nontender] EXT: [No clubbing, cyanosis or edema.] SKIN: [No rashes or lesions noted.] NEURO: [Awake, alert, and oriented x3. No focal sensory or strength deficits noted.] Vital Signs (last 8hr) Date Time Temp Pulse Resp B/P (MAP) Pulse Ox O2 Delivery O2 Flow Rate FiO2 08/08/25 09:58 97.3 61 14 140/76 97 Room Air* 0 21 08/08/25 07:25 97.3 72 16 162/68 97 Room Air* 0 21 08/08/25 06:10 98.1 74 16 155/83 98 Room Air* 0 21 Laboratory: [ ] Hematology Labs: Test 08/08/25 05:56 Range/Units White Blood Count 7.3 4.8-10.8 K/uL Red Blood Count 4.63 4.00-5.50 MIL/uL Hemoglobin 12.0 12.0-16.0 g/dL Hematocrit 38.1 36-48 % Mean Corpuscular Volume 82.3 79-99 fL Mean Corpuscular Hemoglobin 25.9 L 27.0-33.0 pg Mean Corpuscular Hemoglobin Concent 31.5 L 32.0-36.0 g/dL Red Cell Distribution Width 14.3 11.0-15.5 % Platelet Count 321 130-400 K/uL Mean Platelet Volume 9.9 7.5-10.5 fL Immature Granulocyte % (Auto) 0.3 0-1 % Neutrophils (%) (Auto) 62.2 40.0-77.0 % Lymphocytes (%) (Auto) 29.0 21.0-51.0 % Monocytes (%) (Auto) 6.6 3.0-13.0 % Eosinophils (%) (Auto) 1.1 0.0-8.0 % Basophils (%) (Auto) 0.8 0.0-5.0 % Neutrophils # (Auto) 4.5 1.8-7.7 K/uL Lymphocytes # (Auto) 2.1 1.0-4.8 K/uL Monocytes # (Auto) 0.5 0.1-1.0 K/uL Eosinophils # (Auto) 0.08 0.00-0.70 K/uL Basophils # (Auto) 0.06 0.00-0.20 K/uL Absolute Immature Granulocyte (auto 0.02 0-1 K/uL Nucleated Red Blood Cells 0.0 0.0-0.19 % Chemistry Labs: Test 08/08/25 11:48 08/08/25 05:56 08/08/25 00:18 08/07/25 13:09 Range/Units Whole Blood Glucose 114 H 70-110 MG/DL Bedside Glucose Comment Notified Nurse Sodium Level 135 L 136-145 mmol/L Potassium Level 4.1 3.5-5.1 mmol/L Chloride Level 99 L 101-111 mmol/L Carbon Dioxide Level 29 21-32 mmol/L Blood Urea Nitrogen 18 7-18 mg/dL Creatinine 1.1 H 0.5-1.0 mg/dL Glomerular Filtration Rate Calc 56 >90 mL/min Random Glucose 117 H 70-105 mg/dL Total Calcium 9.2 8.5-10.1 mg/dL Ionized Calcium 1.19 1.15-1.33 MMOL/L Phosphorus Level 3.0 2.5-4.9 mg/dL Magnesium Level 2.10 1.80-2.40 mg/dL Iron Level 33 L 50-170 mcg/dL Total Iron Binding Capacity 376 250-450 mcg/dL Percent Iron Saturation 8.7 L 22-44 % Triglycerides Level 64 30-200 mg/dL Cholesterol Level 141 <200 mg/dL LDL Cholesterol 71 0-99 mg/dL HDL Cholesterol 51 35-85 mg/dL Thyroid Stimulating Hormone (TSH) 6.31 H 0.36-3.74 uIU/mL Hemoglobin A1c 6.5 H 4.0-6.0 % Estimated Average Glucose (eAG) 140 H 70-126 mg/dL Troponin I High Sensitivity < 4 L 4-50 ng/L B-Type Natriuretic Peptide 26 0-100 pg/mL Coagulation Labs: Test 08/08/25 05:56 08/08/25 00:18 Range/Units Prothrombin Time 10.1 9.6-11.6 SEC Prothromb Time International Ratio 0.95 0.85-1.15 D-Dimer Quantitative (PE/DVT) 556 *H 0-500 ng/mL Diagnostics / Radiology: IMPRESSION: No acute pulmonary thromboembolism is evident. No acute cardiopulmonary process. 0.6 cm subpleural nodule in the left lingula. Recommend a follow-up CT chest at 6 months. /[place] DICTATED BY: ELIEZER SANTANA Jr., MD DATE: 08/08/25 0516 Assessment: Palpitations PVCs Paroxysmal SVT hx Hypothyroidism with Elevated TSH Normal coronaries by CCTA (2023) T2DM KAMERON on CPAP Incidentally noted nodule within the left lingula hx Asthma, appears mild intermittent Plan: Echo already ordered -- reviewed and benign showing normal systolic, diastolic function, no pericardial effusion, and no significant valvular abnormalities Her TSH is elevated and likely contributor to worsening palpitations She does have a history of pSVT and PAC/PVCs by prior outpatient monitor, although minimal burden at that time. We could initiate low dose beta blockade to address her symptoms, and can trial discontinuation once her TSH is again in normal limits. She previously trialed metoprolol and calcium channel willis verapamil/diltiazem which were all discontinued due to shortness of breath, however no asthma exacerbation, wheezing, chest tightness, and continued symptoms despite discontinuation therefore doubt true bronchospasm. In setting of abnormal TSH, recommend BB first line. Will trial metoprolol tartrate 25mg once. If she tolerates, can discharge home on 25mg PO BID with follow up with detective, Dr Danial Fitzpatrick. JEANNETTE MEDLEY DO Aug 08, 2025 13:38
--- NOTE | 2025-08-08 13:57 | NUR ---
CARDIO CONSULT DR MEDLEY SAW PT. NO NEW ORDERS AT THIS TIME. SHE WILL REACH OUT TO BENCHMARK REGARDING HER ADVICE.
[2025-08-08] MEDS: 0.9%NACL 1000ML 1,000 ML IV SCH (15:00)
[2025-08-08 15:24] LABS: ABG BASE EXCESS -2.6 mmol/L (-2.0-3.0); ABG HCO3 20.7 mmol/L (21.0-28.0); ABG OXYGEN SATURATION 97.2 % (94.0-98.0); ABG PCO2 31 mmHg (32-45); ABG PH 7.439 (7.350-7.450); CARBON MONOXIDE 0.3 % (0.5-1.5); PO2, ARTERIAL BG 91.6 mmHg (83.0-108.0); TEMPERATURE, CELSIUS BG 37.0 CELSIUS (35.5-37.0); VENT MODE, BG RA (ROOM AIR)
[2025-08-08] MEDS: LISINOPRIL 20 MG TABLET PO SCH (18:03)
--- NOTE | 2025-08-08 18:32 | NUR ---
METOPROLOL TAKEN AT 16:43. OFF NOW SHE HAS NO ADVERSE REACTION,NO COMPLAINTS OF BREATHING DIFFICULTIES.
--- NOTE | 2025-08-08 23:07 | NUR ---
REPORT GIVEN TO CELESTE BUTTS
[2025-08-09] VITALS: BP 156/75; PULSE 67; RESP 20; TEMP 98.1; O2SAT 98
[2025-08-09 04:00] VITALS: BP 134/67; PULSE 65; RESP 20; TEMP 97.9
--- NOTE | 2025-08-09 06:04 | HMCIMG ---
EXAMINATION: SPECTRAL DOPPLER ULTRASOUND EXAMINATION OF THE BILATERAL LOWER EXTREMITY VEINS. CLINICAL HISTORY: To rule out DVT. COMPARISON: None provided. TECHNIQUE: Real-time ultrasound scan of the veins of the bilateral lower extremity with color Doppler flow, spectral waveform analysis and compression. FINDINGS: DEEP VEINS: The common femoral, superficial femoral, and popliteal veins are echolucent and compressible. There is normal color Doppler flow throughout. The visualized calf veins appear patent. SUPERFICIAL VEINS: The greater saphenous veins are patent and compressible. SOFT TISSUES: There is a cystic lesion that measures 2.6 x 0.9 x 2.3 cm in the right popliteal fossa. IMPRESSION: No deep venous thrombosis evident in the bilateral lower extremity. No superficial thrombophlebitis in the bilateral lower extremity. Simple padron???s cyst in the right popliteal fossa. /[place]
[2025-08-09 08:00] VITALS: BP 141/78; PULSE 64; RESP 17; TEMP 97.8
[2025-08-09 12:00] VITALS: BP 135/77; PULSE 77; RESP 16; TEMP 98.4
--- NOTE | 2025-08-09 12:09 | PN ---
[facility] CARDIOLOGY PROGRESS NOTE Date Patient Seen: Aug 09, 2025 Time of Visit: 12:08 Problem List: Palpitations Interval History: Seen on medical unit Palpitations improved Physical Examination: GENERAL: [No acute distress.] LUNGS: [Clear breath sounds bilaterally. On room air. No wheezes, or rhonchi.] HEART: [Normal rate and rhythm. Normal S1 and S2 without murmurs, gallop or rub.] VASC: [Peripheral pulses +2 bilaterally.] EXT: [No cyanosis or edema.] SKIN: [No rashes or lesions noted.] NEURO: [Awake, alert, and oriented x3. No focal sensory or strength deficits noted.] Laboratory: [ ] Hematology Labs: Test 08/08/25 05:56 Range/Units White Blood Count 7.3 4.8-10.8 K/uL Red Blood Count 4.63 4.00-5.50 MIL/uL Hemoglobin 12.0 12.0-16.0 g/dL Hematocrit 38.1 36-48 % Mean Corpuscular Volume 82.3 79-99 fL Mean Corpuscular Hemoglobin 25.9 L 27.0-33.0 pg Mean Corpuscular Hemoglobin Concent 31.5 L 32.0-36.0 g/dL Red Cell Distribution Width 14.3 11.0-15.5 % Platelet Count 321 130-400 K/uL Mean Platelet Volume 9.9 7.5-10.5 fL Immature Granulocyte % (Auto) 0.3 0-1 % Neutrophils (%) (Auto) 62.2 40.0-77.0 % Lymphocytes (%) (Auto) 29.0 21.0-51.0 % Monocytes (%) (Auto) 6.6 3.0-13.0 % Eosinophils (%) (Auto) 1.1 0.0-8.0 % Basophils (%) (Auto) 0.8 0.0-5.0 % Neutrophils # (Auto) 4.5 1.8-7.7 K/uL Lymphocytes # (Auto) 2.1 1.0-4.8 K/uL Monocytes # (Auto) 0.5 0.1-1.0 K/uL Eosinophils # (Auto) 0.08 0.00-0.70 K/uL Basophils # (Auto) 0.06 0.00-0.20 K/uL Absolute Immature Granulocyte (auto 0.02 0-1 K/uL Nucleated Red Blood Cells 0.0 0.0-0.19 % Chemistry Labs: Test 08/09/25 08:04 08/08/25 11:48 08/08/25 05:56 08/08/25 00:18 Range/Units Whole Blood Glucose 141 H 70-110 MG/DL Bedside Glucose Comment Notified Nurse Sodium Level 135 L 136-145 mmol/L Potassium Level 4.1 3.5-5.1 mmol/L Chloride Level 99 L 101-111 mmol/L Carbon Dioxide Level 29 21-32 mmol/L Blood Urea Nitrogen 18 7-18 mg/dL Creatinine 1.1 H 0.5-1.0 mg/dL Glomerular Filtration Rate Calc 56 >90 mL/min Random Glucose 117 H 70-105 mg/dL Total Calcium 9.2 8.5-10.1 mg/dL Ionized Calcium 1.19 1.15-1.33 MMOL/L Phosphorus Level 3.0 2.5-4.9 mg/dL Magnesium Level 2.10 1.80-2.40 mg/dL Iron Level 33 L 50-170 mcg/dL Total Iron Binding Capacity 376 250-450 mcg/dL Percent Iron Saturation 8.7 L 22-44 % Triglycerides Level 64 30-200 mg/dL Cholesterol Level 141 <200 mg/dL LDL Cholesterol 71 0-99 mg/dL HDL Cholesterol 51 35-85 mg/dL Thyroid Stimulating Hormone (TSH) 6.31 H 0.36-3.74 uIU/mL Hemoglobin A1c 6.5 H 4.0-6.0 % Estimated Average Glucose (eAG) 140 H 70-126 mg/dL Troponin I High Sensitivity < 4 L 4-50 ng/L Test 08/07/25 13:09 Range/Units B-Type Natriuretic Peptide 26 0-100 pg/mL Coagulation Labs: Test 08/08/25 05:56 08/08/25 00:18 Range/Units Prothrombin Time 10.1 9.6-11.6 SEC Prothromb Time International Ratio 0.95 0.85-1.15 D-Dimer Quantitative (PE/DVT) 556 *H 0-500 ng/mL Impression and Plan: Palpitations PVCs Paroxysmal SVT hx Hypothyroidism with Elevated TSH Normal coronaries by CCTA (2023) T2DM KAMERON on CPAP Incidentally noted nodule within the left lingula hx Asthma, appears mild intermittent Start metoprolol tartrate 25mg PO BID Follow up outpatient endocrinology regarding her abnormal TSH, likely co ntributor to her resurgence in palpitations. Cardiology to sign off. JEANENTTE MEDLEY DO Aug 09, 2025 12:09
[2025-08-09 15:46] VITALS: PULSE 102; PULSE 93; RESP 20; O2SAT 95; O2SAT 97
--- NOTE | 2025-08-09 17:18 | NUR ---
PT sitting in bed w/ eyes open able to make needs known, 0 s/s of distress noted. Discharge instructions given to PT and verbally and written in [place] language. PT and verbally acknowledged understanding. Written prescription given to PT. I.V. removed intact w/o complications. PT escorted to POV via WC by [facility] ATTENDANT.
--- NOTE | 2025-08-09 17:49 | PN ---
[facility] PROGRESS NOTE Date Patient Seen: Aug 09, 2025 Time of Visit: 17:49 Supervising Physician: [ ] Primary Care Physician: [Dr. David Ross ] Outpatient Specialists: [Dr. Pena-cardiology ] Inpatient Consults: [Dr. Pena-cardiology ] PROBLEM LIST: Atypical chest pain-POA Palpitations-POA Hypertensive urgency-POA HLD DM Paroxysmal Afib and SVT LIZ on CKD 0.6 cm subpleural nodule in the left lingula (CT chest follow up in 6 months) GERD Anxiety disorder INTERVAL HISTORY: Patient is awake alert and oriented x3. Currently hemodynamically stable. She has been afebrile with a T-max of 98.4 saturating 97% on room air in no apparent respiratory distress. On chemistries sodium 135 chloride 99 creatinine 1.1 GFR of 56 glucose of 117 mg/dL magnesium of 2.10 iron 33 TSH of 6.31. She is awaiting cardiology consult for evaluation and recommendations. Currently SR on the night monitor at the bedside with occasional PVC's. As per pt she know her TSH has been slightly elevated but has not been started on levothyroxine due to allergy to medication. PLAN: -Admit to med-surg telemetry -ACS risk stratifications: TSH, lipid panel and HgA1c -Obtain echo in am-pending result -Recheck trops -PRN NTG and IV Morphine for chest pain management -Dr. Pena has been consulted. -Maintain hemodynamic stability to keep MAP >65; PRN IV Labetalol for SBP >160 -plan for DC in the next 24 hours [address] chest in 6 Months for 0.6 cm subpleural nodule in the left lingula REVIEW OF SYSTEMS: 12 point ROS reviewed with patient. Pertinent positives mentioned above. Otherwise negative. PHYSICAL EXAM: GENERAL: alert, awake oriented x 3, morbidly obese HEENT: EOMI, Sclera non icteric, moist mucosa NECK: Supple, no JVD, trachea midline LUNGS: Clear breath sounds bilaterally. No wheezes HEART: Regular rate and rhythm. Normal S1 and S2, without murmurs, appreciable skipped beats noted on auscultation ABD: Abdomen soft, nontender. Bowel sounds present EXT: No clubbing cyanosis or edema NEURO: Alert and oriented to person, follows commands Vital Signs (last 8hr) Date Time Temp Pulse Resp B/P (MAP) Pulse Ox O2 Delivery O2 Flow Rate FiO2 08/09/25 15:46 93 20 21 102 20 21 08/09/25 12:00 98.4 77 16 135/77 99 Room Air LABS: Hematology Labs: Test 08/08/25 05:56 Range/Units White Blood Count 7.3 4.8-10.8 K/uL Red Blood Count 4.63 4.00-5.50 MIL/uL Hemoglobin 12.0 12.0-16.0 g/dL Hematocrit 38.1 36-48 % Mean Corpuscular Volume 82.3 79-99 fL Mean Corpuscular Hemoglobin 25.9 L 27.0-33.0 pg Mean Corpuscular Hemoglobin Concent 31.5 L 32.0-36.0 g/dL Red Cell Distribution Width 14.3 11.0-15.5 % Platelet Count 321 130-400 K/uL Mean Platelet Volume 9.9 7.5-10.5 fL Immature Granulocyte % (Auto) 0.3 0-1 % Neutrophils (%) (Auto) 62.2 40.0-77.0 % Lymphocytes (%) (Auto) 29.0 21.0-51.0 % Monocytes (%) (Auto) 6.6 3.0-13.0 % Eosinophils (%) (Auto) 1.1 0.0-8.0 % Basophils (%) (Auto) 0.8 0.0-5.0 % Neutrophils # (Auto) 4.5 1.8-7.7 K/uL Lymphocytes # (Auto) 2.1 1.0-4.8 K/uL Monocytes # (Auto) 0.5 0.1-1.0 K/uL Eosinophils # (Auto) 0.08 0.00-0.70 K/uL Basophils # (Auto) 0.06 0.00-0.20 K/uL Absolute Immature Granulocyte (auto 0.02 0-1 K/uL Nucleated Red Blood Cells 0.0 0.0-0.19 % Chemistry Labs: Test 08/09/25 12:51 08/08/25 11:48 08/08/25 05:56 08/08/25 00:18 Range/Units Whole Blood Glucose 97 70-110 MG/DL Bedside Glucose Comment Notified Nurse Sodium Level 135 L 136-145 mmol/L Potassium Level 4.1 3.5-5.1 mmol/L Chloride Level 99 L 101-111 mmol/L Carbon Dioxide Level 29 21-32 mmol/L Blood Urea Nitrogen 18 7-18 mg/dL Creatinine 1.1 H 0.5-1.0 mg/dL Glomerular Filtration Rate Calc 56 >90 mL/min Random Glucose 117 H 70-105 mg/dL Total Calcium 9.2 8.5-10.1 mg/dL Ionized Calcium 1.19 1.15-1.33 MMOL/L Phosphorus Level 3.0 2.5-4.9 mg/dL Magnesium Level 2.10 1.80-2.40 mg/dL Iron Level 33 L 50-170 mcg/dL Total Iron Binding Capacity 376 250-450 mcg/dL Percent Iron Saturation 8.7 L 22-44 % Triglycerides Level 64 30-200 mg/dL Cholesterol Level 141 <200 mg/dL LDL Cholesterol 71 0-99 mg/dL HDL Cholesterol 51 35-85 mg/dL Thyroid Stimulating Hormone (TSH) 6.31 H 0.36-3.74 uIU/mL Hemoglobin A1c 6.5 H 4.0-6.0 % Estimated Average Glucose (eAG) 140 H 70-126 mg/dL Troponin I High Sensitivity < 4 L 4-50 ng/L Coagulation Labs: Test 08/08/25 05:56 08/08/25 00:18 Range/Units Prothrombin Time 10.1 9.6-11.6 SEC Prothromb Time International Ratio 0.95 0.85-1.15 D-Dimer Quantitative (PE/DVT) 556 *H 0-500 ng/mL DIAGNOSTICS / RADIOLOGY RESULTS: [ ] PLAN NEURO: Minimize central acting medications as possible. Maintain fall precautions, adequate lighting during the day PULMONARY: Supplemental 02 as needed. Maintain aspiration precautions at all times CARDIOVASCULAR: Follow hemodynamics. Vital signs per facility protocol GI & NUTRITION: Continue with nutritional support. Continue stool softeners and laxatives as needed. KIDNEYS & ELECTROLYTES: Strict monitoring of intake, output and overall fluid balance. Avoid nephrotoxic medications to the extent possible. Medications to be dosed according to renal function. Monitor electrolytes and replace as needed ENDOCRINE: Maintain blood glucose between 100-180 at all times. Hypoglycemia protocol in place INFECTIOUS DISEASE: Trend temperature, WBC and procalcitonin level Follow cultures, deescalate antibiotics as soon as possible. Panculture if new onset fever ONCOLOGY/HEMATOLOGY/COAGULATION: Monitor for s/s of bleeding Monitor hemoglobin, coagulation studies as needed SKIN: Pressure ulcer prevention per facility protocol Specialty mattress ORTHO/REHAB: Continue PT/OT Prophylaxis: Continue GI and DVT prophylaxis Code Status: Full Resuscitation [facility] 09, [facility]25 17:49
--- NOTE | 2025-08-09 23:02 | DS ---
[facility] DISCHARGE SUMMARY Date Patient Seen: Aug 09, 2025 Time of Visit: 23:02 Supervising Physician: Dr. Zander Olivo Primary Care Physician: [Dr. David Ross ] Outpatient Specialists: [Dr. Pena-cardiology ] Inpatient Consults: [Dr. Pena-cardiology ] PROBLEM LIST: Atypical chest pain-POA Palpitations-POA Hypertensive urgency-POA HLD DM Paroxysmal Afib and SVT LIZ on CKD 0.6 cm subpleural nodule in the left lingula (CT chest follow up in 6 months) GERD Anxiety disorder HOSPITAL COURSE: Patient was admitted clinically worked up for a typical chest pain, patient's manager property, Dr. Pena, consulted seen assess patient, recommendations patient metoprolol titrate 25 mg p.o. b.i.d. and with the patient to follow up with commissioning engineer elevated TSH levels which could be contributing factor to palpations. Patient's chief complaint has been palpations clinically worked up and addressed medication adjusted metoprolol titrate 25 mg p.o. b.i.d. started during the admission patient will follow up with Cardiology upon discharge. Patient has been instructed also to follow up primary care provider, Dr. David Ross 2-3 days after discharge for a wellness check, at this time in the admission process the patient is reviewed and discussed findings with patient and family at bedside there were no questions and concerns caution, patient is medically cleared and can be discharged to home with family care. Patient's family as needed questions and concerns integration the discharge plan. HPI (per admitting provider) Patient is a morbidly obese 65-year-old female with PMH significant for paroxysmal afib adn SVT, HTN, HLD, CKD, GERD and anxiety who has presented tot he ED concerning persistent palpitations and right-sided chest tightness with accompanying dizziness and near-syncope with no known provocation. She reports strong family HX of arrythmias and with a long-standing recurrent palpitations, she was just afraid of further complications. She claims that her symptoms have been occurring more frequently now. She tried contacting Dr. Pena's clinic multiple times but she claims she could not get connected so she decided to come to the hospital instead for evaluation. Her chest tightness occurs spontaneously regardless of her activities or position. She denies any migration or radiation. Her main focus of concern was the heart pause claiming that she would feel the skipped beats and then palpitations in an alternating fashion without any triggers. Labworks were unremarkable, EKG was NSR, troponin x 2 were WNL. Physical assessment was unrevealing except for appreciable skipped beats on auscultation. Otherwise, patient is currently stable. Goals of care were discussed with the patient verbalizing understanding and agreement. The patient was treated for the following problems: ACTIVE PROBLEM LIST FOR THE HOSPITALIZATION: Atypical chest pain-POA Palpitations-POA Hypertensive urgency-POA LIZ on CKD 0.6 cm subpleural nodule in the left lingula (CT chest follow up in 6 months) CHRONIC PROBLEMS: continue previous management per PCP unless otherwise indicated 0.6 cm subpleural nodule in the left lingula (CT chest follow up in 6 months) HLD DM Paroxysmal Afib and SVT GERD Anxiety disorder PSYCHIATRIC ARNP FINDINGS/RECOMMENDATIONS: [ ] Start metoprolol tartrate 25mg PO BID Follow up outpatient endocrinology regarding her abnormal TSH, likely contributor to her resurgence in palpitations. Cardiology, Dr.Deanna Pnea PROCEDURES: as mentioned above REASON: chest pain, palpitations ORDERING PHYSICIAN: JAYNA VELEZ PROCEDURE: ECHO CMP - ECHO 2-D COMPLETE APPROVED REPORT EXAM: Two-dimensional and M-mode echocardiogram with Doppler and color Doppler. INDICATION ICD: Chest pain R07.9, Palpitations 2D Dimensions RVDd 3.8 cm LVEF(%) 59.4 (>50%) LVED Vol(simp.) 75.0 mL IVSd 1.2 (0.7-1.1cm) FS(%) 31 % LVES Vol(simp.) 25.0 mL LVDd 4.5 (3.8-5.6cm) LA (2D) 3.8 (1.6-4.0cm) LVEF(%, simp.) 67 % PWd 1.0 (0.7-1.1cm) Ao Root(2D) 2.8 (2.0-3.7cm) LA ESV INDEX (BP) 22.25 mL/m2 IVSs 1.4 cm LVOT diam 2.2 (1.8-2.4cm) LVDs 3.1 (2.5-4.0cm) IVC diam 1.9 cm PWs 1.3 cm Deformation Strain Apical 4 -19.1 % Apical 2 -17.7 % Apical 3 -15.8 % Global Strain -17.5 % M-Mode Dimensions EPSS 0.8 cm LA (MM) 3.6 (1.6-4.0cm) Ao Root(MM) 2.7 (2.0-3.7cm) Aortic Valve AoV Vmax 1.4 m/s Ao Peak GR 7.3 mmHg LVOT Vmax 1.2 m/s AoV VTI 0.3 m Ao Mean GR 4.1 mmHg LVOT VTI 0.27 m SOFÍA (VMAX) 3.33 cm2 SOFÍA (VTI) 3.8 cm2 Mitral Valve MV E Vmax 58.0 cm/s DECEL Time 187 ms MV A Vmax 97.2 cm/s P 1/2 T 34 ms E/A ratio 0.6 MVA (PHT) 6.4 cm2 TDI E/E' Medial 12.1 E/E' Lateral 14.0 Medial E' Peak V 4.79 cm/s Lateral E' Peak V 4.14 cm/s Pulmonary Valve PV Vmax 0.9 m/s PV Mean GR 2.2 mmHg PV Peak GR 3.0 mmHg Tricuspid Valve TR Vmax 1.3 m/s RAP (EST) 3 mmHg RVSP 9.6 mmHg TR Peak GR 6.6 mmHg Left Ventricle The left ventricle is normal size. GLS -18.0% There is normal left ventricular wall thickness. The LVEF is > 65%. The left ventricular diastolic function is normal. Right Ventricle The right ventricle is normal size. The right ventricular systolic function is normal. Atria The left atrium size is normal. The right atrium size is normal. Aortic Valve The aortic valve is normal in structure. No aortic regurgitation is present. There is no aortic valvular stenosis. Mitral Valve The mitral valve is normal in structure. There is no mitral valve regurgitation noted. There is no mitral valve stenosis. Tricuspid Valve The tricuspid valve is normal in structure. There is no tricuspid valve regurgitation noted. Pulmonic Valve The pulmonary valve is normal in structure. There is no pulmonic valvular regurgitation. Great Vessels The aortic root is normal in size. The IVC is normal in size and collapses >50% with inspiration. Pericardium There is no pericardial effusion. Other Information Quality : Adequate Rhythm : NSR Conclusion The LVEF is > 65%. The left ventricular diastolic function is normal. DICTATED BY: JEANNETTE PENA DO DATE: 08/08/25926 ELECTRONICALLY SIGNED BY: JEANNETTE PENA DO DATE: 08/08/25 133 DISCHARGE MEDICATIONS: REASON: RULE OUT PE, ELEVATED D-DIMER, SOB ORDERING PHYSICIAN: JAYNA VELEZ PROCEDURE: CHES PE - CT CHEST PE PROTOCOL WWO CONT EXAM: CTA examination of the chest CLINICAL HISTORY: Rule out pulmonary embolism. Elevated D-dimer. Shortness of breath. TECHNIQUE: Postcontrast thin collimated axial CTA images of the chest were obtained with sagittal and coronal reformatted images also submitted. CT scan is done according to ALARA (As Low as Reasonably Achievable). COMPARISON: None provided. FINDINGS: Mild subsegmental atelectasis in the bilateral lung bases. 0.6 cm subpleural nodule in the left lingula. Mild biapical pleural scarring. No focal consolidation, effusion, pneumothorax, or mass. No pericardial effusion. The cardiac size is within normal limits. Mild calcific atherosclerotic disease in the thoracic aorta. No thoracic aortic aneurysm. The pulmonary artery is normal in caliber without a filling defect or pulmonary thromboembolism. No mediastinal, axillary, or supraclavicular lymphadenopathy. No focal third abnormality is evident. Mild fatty liver. 2.2 cm cystic structure within the spleen. No acute bony abnormality is evident. Mild scoliosis. Degenerative osseous changes. IMPRESSION: No acute pulmonary thromboembolism is evident. No acute cardiopulmonary process. 0.6 cm subpleural nodule in the left lingula. Recommend a follow-up CT chest at 6 months. /[place] DICTATED BY: ELIEZER SANTANA Jr., MD DATE: 08/08/25515 ELECTRONICALLY SIGNED BY: ELIEZER SANTANA Jr., MD REASON: rule out DVT ORDERING PHYSICIAN: EOBNIE VILLASEÑOR PROCEDURE: VENOUS JOSÉ ANTONIO - US VENOUS DOPPLER BILATERAL EXAMINATION: SPECTRAL DOPPLER ULTRASOUND EXAMINATION OF THE BILATERAL LOWER EXTREMITY VEINS. CLINICAL HISTORY: To rule out DVT. COMPARISON: None provided. TECHNIQUE: Real-time ultrasound scan of the veins of the bilateral lower extremity with color Doppler flow, spectral waveform analysis and compression. FINDINGS: DEEP VEINS: The common femoral, superficial femoral, and popliteal veins are echolucent and compressible. There is normal color Doppler flow throughout. The visualized calf veins appear patent. SUPERFICIAL VEINS: The greater saphenous veins are patent and compressible. SOFT TISSUES: There is a cystic lesion that measures 2.6 x 0.9 x 2.3 cm in the right popliteal fossa. IMPRESSION: No deep venous thrombosis evident in the bilateral lower extremity. No superficial thrombophlebitis in the bilateral lower extremity. Simple padron???s cyst in the right popliteal fossa. /[place] DICTATED BY: ELIEZER SANTANA Jr., MD DATE: 08/09/25703 ELECTRONICALLY SIGNED BY: ELIEZER SANTANA Jr., MD DATE: 08/09/25703 Pt hemodynamically stable and afebrile at time of discharge. PCP notified of patients admission, hospital course and discharge. PHYSICAL EXAM: GENERAL: alert, awake oriented x 3, morbidly obese HEENT: EOMI, Sclera non icteric, moist mucosa NECK: Supple, no JVD, trachea midline LUNGS: Clear breath sounds bilaterally. No wheezes HEART: Regular rate and rhythm. Normal S1 and S2, without murmurs, appreciable skipped beats noted on auscultation ABD: Abdomen soft, nontender. Bowel sounds present EXT: No clubbing cyanosis or edema NEURO: Alert and oriented to person, follows commands FOLLOW-UP: Dr David Ross Follow-up with PCP in 2-3 days RECOMMENDATIONS: See Discharge Instructions This case was seen and discussed with my supervising physician. More than 51 minutes spent on discharge process, including evaluation of the patient, discussion with nursing staff, medication reconciliation and follow-up appointments HERNÁN DIOR AGACNP Aug 09, 2025 23:02
== END 2025-08-09 17:15 | disposition home or self-care (01) ==
LOC: EDH 12:44 → EDHIP 18:53 → 4CH 08-08 23:30
PROVIDERS: ADMIT Internal Medicine Critical Care Medicine; ATTEND Internal Medicine Critical Care Medicine
DX: R07.89 Other chest pain (principal); R11.2 Nausea with vomiting, unspecified; R00.2 Palpitations; F32.A Depression, unspecified; I12.9 Hypertensive chronic kidney disease with stage 1 through stage 4 chronic kidney disease, or unspecified chronic kidney disease; E11.22 Type 2 diabetes mellitus with diabetic chronic kidney disease; E11.65 Type 2 diabetes mellitus with hyperglycemia; F41.9 Anxiety disorder, unspecified; G47.33 Obstructive sleep apnea (adult) (pediatric); E78.00 Pure hypercholesterolemia, unspecified; E66.01 Morbid (severe) obesity due to excess calories; I16.0 Hypertensive urgency; E03.9 Hypothyroidism, unspecified; J45.909 Unspecified asthma, uncomplicated; K21.9 Gastro-esophageal reflux disease without esophagitis; N18.31 Chronic kidney disease, stage 3a; N17.9 Acute kidney failure, unspecified; Z79.899 Other long term (current) drug therapy; Z88.0 Allergy status to penicillin; Z90.710 Acquired absence of both cervix and uterus; Z98.890 Other specified postprocedural states; Z20.822 Contact with and (suspected) exposure to COVID-19
CPT/HCPCS: 99285; 83735 ×2; 84484 ×3; 80048 ×2; 83880; 85025 ×2; 87086; 82948 ×7; 87426; 81001; 36415 ×2; 71045; 93005 ×2; 96372; 83036; 84443; 83540; 83550; 82435; 82947; 84100; 84132; 84295; 82330; 80061; 82803; 85378; 85610; 85018; 83605; 71270; 93306; 93356; 93970; 36600; 94760; G0378 ×46; J7030; J1650; Q9967